=== PATIENT | male | born 1945 | race Caucasian/White ===

== ENCOUNTER 2018-05-04 10:54 | Inpatient (IN) ==
[2018-05-04 11:41] LABS: Basophils % 0.2 % (0.0-0.8); Eosinophils % 0.1 % (0.00-10.9); Hematocrit 51.3 VOL% (42.0-52.0); Hemoglobin 16.9 GM/DL (14.0-18.0); Immature Granulocytes % 0.7 %; Immature Granulocytes Absolute 0.13 #; Lymphocytes # 1.2 10*3/uL (1.4-4.0); Lymphocytes % 6.9 % (21.2-54.2); Mean Corpuscular HGB Conc 32.9 GM/DL (32-36); Mean Corpuscular Hemoglobin 31 PG (27-34); Mean Corpuscular Volume 92.4 FL (87-102); Mean Platelet Volume 9.9 FL (9.6-12.0); Monocytes # 1.2 10*3/uL (0.11-0.8); Monocytes % 6.8 % (1.7-12.7); Neutrophils % 85.3 % (38.7-73.9); Platelet Count 263 T/CUMM (130-400); Red Blood Count 5.55 MC/CUMM (3.8-5.5); Red Cell Distribution Width 12.7 % (9.3-17.3); White Blood Count 17.6 T/CUMM (4-12)
[2018-05-04 11:49] LABS: INR 1.3; PT Patient Result 14.6 SECS
[2018-05-04] MEDS ORDERED: ONDANSETRON 4 MG/2 ML VIAL IV PRN (11:52)
[2018-05-04 11:58] LABS: Albumin 3.1 G/DL (3.4-5.0); Bilirubin,Total 1.5 MG/DL (0.2-1.0); Calcium 8.7 MG/DL (8.5-10.1); Osmolality,Calculated 272.4 MOS/KG (273-304); Potassium 5.2 MMOL/L (3.5-5.1); Total Protein 7.8 G/DL (6.4-8.3)
[2018-05-04] MEDS ORDERED: SODIUM CHLORIDE 0.9% 1,000 ML IV SCH (12:00)
[2018-05-04] MEDS ORDERED: ENOXAPARIN 100 MG/ML SYRINGE SUBCUT STA (12:16)
[2018-05-04] MEDS: HEPARIN DRIP 25,000 UNITS/500 ML PREMIX IV SCH (12:38)
[2018-05-04] MEDS ORDERED: diphenhydrAMINE CAP 25 MG CAPSULE PO ONE (13:35)
[2018-05-04] MEDS ORDERED: DIAZEPAM 5 MG TABLET PO ONE (13:35)
[2018-05-04] MEDS ORDERED: ALBUTEROL 2.5 MG/3 ML NEB RESP TX PRN (17:03)
[2018-05-04] MEDS: cefTRIAXone 1,000 MG in SYRINGE 1 EACH IV SCH (17:50)
[2018-05-04] MEDS: ACETAMINOPHEN 325 MG TABLET PO PRN (17:50)
[2018-05-04 18:53] LABS: Hepatitis A Ab IgM Quant 0.72 Index; Hepatitis A Ab IgM Result Negative (Negative); Hepatitis B Core IgM Quant < 0.05 Index; Hepatitis B Core IgM Result Negative (Negative); Hepatitis B Surface Ag Quant 0.38 Index; Hepatitis B Surface Ag Result Negative (Negative); Hepatitis C Virus Ab Quant 0.11 Index; Hepatitis C Virus Ab Result Negative (Negative)
[2018-05-04] MEDS: ALBUTEROL 2.5 MG/3 ML NEB RESP TX SCH (19:19)
[2018-05-04] MEDS ORDERED: APIXABAN 5 MG TABLET PO SCH (21:00)
[2018-05-04] MEDS ORDERED: PRAVASTATIN 20 MG TABLET PO SCH (21:00)
[2018-05-04] MEDS: DOCUSATE SODIUM 100 MG CAPSULE PO SCH (22:12)
[2018-05-05 05:07] LABS: Basophils % 0.2 % (0.0-0.8); Eosinophils % 0.1 % (0.00-10.9); Hematocrit 46.5 VOL% (42.0-52.0); Hemoglobin 15.3 GM/DL (14.0-18.0); Immature Granulocytes % 0.8 %; Immature Granulocytes Absolute 0.13 #; Lymphocytes # 1.6 10*3/uL (1.4-4.0); Lymphocytes % 9.8 % (21.2-54.2); Mean Corpuscular HGB Conc 32.9 GM/DL (32-36); Mean Corpuscular Hemoglobin 30 PG (27-34); Mean Corpuscular Volume 92.1 FL (87-102); Mean Platelet Volume 9.9 FL (9.6-12.0); Monocytes # 1.1 10*3/uL (0.11-0.8); Monocytes % 6.7 % (1.7-12.7); Neutrophils # 13.5 10*3/uL (1.4-7.4); Neutrophils % 82.4 % (38.7-73.9); Platelet Count 251 T/CUMM (130-400); Red Blood Count 5.05 MC/CUMM (3.8-5.5); Red Cell Distribution Width 12.4 % (9.3-17.3); White Blood Count 16.4 T/CUMM (4-12)
[2018-05-05 05:22] LABS: Calcium 8.3 MG/DL (8.5-10.1)
[2018-05-05] MEDS: ALBUTEROL 2.5 MG/3 ML NEB RESP TX SCH ×2 (06:50→18:31)
[2018-05-05] MEDS ORDERED: ceFAZolin 1,000 MG in SYRINGE 1 EACH IV ONE (07:39)
[2018-05-05] MEDS ORDERED: ceFAZolin 1,000 MG VIAL IRRIG ONE (07:39)
[2018-05-05] MEDS ORDERED: DIAZEPAM 5 MG TABLET PO ONE (09:30)
[2018-05-05] MEDS ORDERED: diphenhydrAMINE CAP 25 MG CAPSULE PO ONE (09:30)
[2018-05-05] MEDS ORDERED: MIDAZOLAM 2 MG/2 ML VIAL ONE ×2 (09:51→10:27)
[2018-05-05] MEDS ORDERED: fentaNYL 100 MCG/2 ML VIAL ONE (09:55)
[2018-05-05] MEDS ORDERED: ceFAZolin 1,000 MG VIAL ONE (10:16)
[2018-05-05] MEDS ORDERED: MAGNESIUM HYDROXIDE SUSP 30 ML UDCUP PO PRN (10:20)
[2018-05-05] MEDS ORDERED: LIDOCAINE 1% 20 ML VIAL ONE ×3 (10:30→10:59)
[2018-05-05] MEDS ORDERED: TISSUE ADHESIVE 1 EACH APPLICATOR TOP ONE ×2 (11:14→11:27)
[2018-05-05] MEDS: PANTOPRAZOLE 40 MG TABLET PO SCH (13:03)
[2018-05-05] MEDS: DOCUSATE SODIUM 100 MG CAPSULE PO SCH (13:03)
[2018-05-05] MEDS: HEPARIN DRIP 25,000 UNITS/500 ML PREMIX IV SCH ×2 (13:03→21:03)
[2018-05-05] MEDS: HYDROCHLOROTHIAZIDE PO SCH (16:56)
[2018-05-05] MEDS: CAPTOPRIL PO SCH (16:56)
[2018-05-05] MEDS: cefTRIAXone 1,000 MG in SYRINGE 1 EACH IV SCH (16:56)
[2018-05-05] MEDS: [UNRECOGNIZED DRUG - OTHER] PO SCH (16:56)
[2018-05-06] MEDS: ACETAMINOPHEN 325 MG TABLET PO PRN (01:22)
[2018-05-06] MEDS: DOCUSATE SODIUM 100 MG CAPSULE PO SCH ×3 (01:38→21:22)
[2018-05-06 04:19] LABS: Basophils % 0.1 % (0.0-0.8); Eosinophils % 0.1 % (0.00-10.9); Hemoglobin 14.5 GM/DL (14.0-18.0); Immature Granulocytes % 0.9 %; Immature Granulocytes Absolute 0.14 #; Lymphocytes # 1.3 10*3/uL (1.4-4.0); Lymphocytes % 8.1 % (21.2-54.2); Mean Corpuscular HGB Conc 33.7 GM/DL (32-36); Mean Corpuscular Hemoglobin 31 PG (27-34); Mean Corpuscular Volume 91.1 FL (87-102); Mean Platelet Volume 10.2 FL (9.6-12.0); Neutrophils # 13.6 10*3/uL (1.4-7.4); Neutrophils % 84.8 % (38.7-73.9); Platelet Count 233 T/CUMM (130-400); Red Blood Count 4.72 MC/CUMM (3.8-5.5); Red Cell Distribution Width 12.2 % (9.3-17.3); White Blood Count 16.1 T/CUMM (4-12)
[2018-05-06 04:51] LABS: Calcium 8.2 MG/DL (8.5-10.1); Osmolality,Calculated 272.2 MOS/KG (273-304); Potassium 3.6 MMOL/L (3.5-5.1)
[2018-05-06] MEDS: ALBUTEROL 2.5 MG/3 ML NEB RESP TX SCH ×2 (06:41→19:21)
[2018-05-06] MEDS: PANTOPRAZOLE 40 MG TABLET PO SCH (09:47)
[2018-05-06] MEDS: [UNRECOGNIZED DRUG - OTHER] PO SCH (09:49)
[2018-05-06] MEDS: HYDROCHLOROTHIAZIDE PO SCH (09:49)
[2018-05-06] MEDS: CAPTOPRIL PO SCH (09:49)
[2018-05-06] MEDS: HEPARIN DRIP 25,000 UNITS/500 ML PREMIX IV SCH (14:36)
[2018-05-06] MEDS: cefTRIAXone 1,000 MG in SYRINGE 1 EACH IV SCH (16:53)
[2018-05-06] MEDS: APIXABAN 5 MG TABLET PO SCH (21:22)
[2018-05-07] MEDS: ZALEPLON 5 MG CAPSULE PO PRN (03:45)
[2018-05-07 05:06] LABS: Basophils % 0.2 % (0.0-0.8); Eosinophils # 0.1 10*3/uL (0.0-0.87); Eosinophils % 0.7 % (0.00-10.9); Hematocrit 43.1 VOL% (42.0-52.0); Hemoglobin 14.3 GM/DL (14.0-18.0); Immature Granulocytes % 0.9 %; Immature Granulocytes Absolute 0.13 #; Lymphocytes # 1.3 10*3/uL (1.4-4.0); Mean Corpuscular HGB Conc 33.2 GM/DL (32-36); Mean Corpuscular Hemoglobin 30 PG (27-34); Mean Corpuscular Volume 91.7 FL (87-102); Monocytes # 0.9 10*3/uL (0.11-0.8); Monocytes % 6.2 % (1.7-12.7); Neutrophils # 12.4 10*3/uL (1.4-7.4); Platelet Count 238 T/CUMM (130-400); Red Cell Distribution Width 12.1 % (9.3-17.3)
[2018-05-07 05:34] LABS: Calcium 7.7 MG/DL (8.5-10.1); Osmolality,Calculated 269.4 MOS/KG (273-304); Potassium 3.6 MMOL/L (3.5-5.1)
[2018-05-07] MEDS: ALBUTEROL 2.5 MG/3 ML NEB RESP TX SCH ×2 (07:15→20:17)
[2018-05-07] MEDS: DOCUSATE SODIUM 100 MG CAPSULE PO SCH ×2 (08:31→22:30)
[2018-05-07] MEDS: PANTOPRAZOLE 40 MG TABLET PO SCH (08:32)
[2018-05-07] MEDS: APIXABAN 5 MG TABLET PO SCH ×2 (08:32→22:30)
[2018-05-07] MEDS: CAPTOPRIL PO SCH (09:24)
[2018-05-07] MEDS: HYDROCHLOROTHIAZIDE PO SCH (09:24)
[2018-05-07] MEDS: [UNRECOGNIZED DRUG - OTHER] PO SCH (09:24)
[2018-05-07] MEDS: cefTRIAXone 1,000 MG in SYRINGE 1 EACH IV SCH (16:35)
[2018-05-08 04:41] LABS: Basophils % 0.2 % (0.0-0.8); Eosinophils # 0.2 10*3/uL (0.0-0.87); Eosinophils % 1.7 % (0.00-10.9); Hematocrit 44.4 VOL% (42.0-52.0); Hemoglobin 15.3 GM/DL (14.0-18.0); Immature Granulocytes % 1.6 %; Immature Granulocytes Absolute 0.19 #; Lymphocytes # 1.1 10*3/uL (1.4-4.0); Lymphocytes % 9.4 % (21.2-54.2); Mean Corpuscular HGB Conc 34.5 GM/DL (32-36); Mean Corpuscular Hemoglobin 31 PG (27-34); Mean Corpuscular Volume 90.6 FL (87-102); Mean Platelet Volume 9.7 FL (9.6-12.0); Monocytes # 0.9 10*3/uL (0.11-0.8); Monocytes % 7.3 % (1.7-12.7); Neutrophils # 9.6 10*3/uL (1.4-7.4); Neutrophils % 79.8 % (38.7-73.9); Platelet Count 249 T/CUMM (130-400); Red Cell Distribution Width 12.1 % (9.3-17.3); White Blood Count 12.1 T/CUMM (4-12)
[2018-05-08 04:57] LABS: Albumin 2.1 G/DL (3.4-5.0); Bilirubin,Total 1.2 MG/DL (0.2-1.0); Calcium 7.9 MG/DL (8.5-10.1); Total Protein 6.1 G/DL (6.4-8.3)
[2018-05-08] MEDS: DOCUSATE SODIUM 100 MG CAPSULE PO SCH ×3 (05:38→20:21)
[2018-05-08] MEDS: ALBUTEROL 2.5 MG/3 ML NEB RESP TX SCH ×2 (07:10→21:31)
[2018-05-08] MEDS: APIXABAN 5 MG TABLET PO SCH ×2 (09:08→20:21)
[2018-05-08] MEDS: PANTOPRAZOLE 40 MG TABLET PO SCH (09:08)
[2018-05-08] MEDS: METOPROLOL SUCCINATE XL 25 MG TABLET PO SCH (12:08)
[2018-05-08] MEDS: cefTRIAXone 1,000 MG in SYRINGE 1 EACH IV SCH (16:55)
[2018-05-08] MEDS: [UNRECOGNIZED DRUG - OTHER] PO SCH (19:12)
[2018-05-08] MEDS: CAPTOPRIL PO SCH (19:12)
[2018-05-08] MEDS: HYDROCHLOROTHIAZIDE PO SCH (19:12)
[2018-05-08] MEDS: ZALEPLON 5 MG CAPSULE PO PRN (20:21)
[2018-05-09] MEDS: ALBUTEROL 2.5 MG/3 ML NEB RESP TX SCH (07:05)
[2018-05-09 07:50] VITALS: BP 134/60
[2018-05-09] MEDS: DOCUSATE SODIUM 100 MG CAPSULE PO SCH (09:15)
[2018-05-09] MEDS: HYDROCHLOROTHIAZIDE PO SCH (09:15)
[2018-05-09] MEDS: APIXABAN 5 MG TABLET PO SCH (09:15)
[2018-05-09] MEDS: CAPTOPRIL PO SCH (09:15)
[2018-05-09] MEDS: METOPROLOL SUCCINATE XL 25 MG TABLET PO SCH (09:15)
[2018-05-09] MEDS: PANTOPRAZOLE 40 MG TABLET PO SCH (09:15)
[2018-05-09] MEDS: [UNRECOGNIZED DRUG - OTHER] PO SCH (09:15)
== END 2018-05-09 11:03 | disposition home or self-care (01) | DRG 982 ==
LOC: N.ED 10:54 → N.EDINP 11:50 → N.2W 13:37 → N.TELES 14:05
PROVIDERS: ADMIT Family Medicine; ATTEND Family Medicine